=== PATIENT | female | born 1995 | race African-American/Black ===

== ENCOUNTER 2017-12-24 21:50 | Emergency (ER) | payer OTHER ==
[2017-12-24 23:04] LABS: KETONE, URINE AUTO RFX NEGATIVE (NEGATIVE); MUCUS, URINE RFX SMALL (NEGATIVE); NITRITE, URINE AUTO RFX NEGATIVE (NEGATIVE); RBC, URINE AUTO RFX 11 /HPF (0-3); SPECIFIC GRAVITY UR AUTO RFX 1.013 (1.002-1.035); SQUAM EPITHELIAL CELL UR AURFX 7 /HPF (0-6)
[2017-12-24 23:05] LABS: LEUKOCYTE ESTERASE UR AUTO RFX 3+ (NEGATIVE); WBC, URINE AUTO RFX 20 /HPF (0-3)
[2017-12-24] MEDS: NITROFURANTOIN (MACROBID) 100 MG CAP PO (23:20)
[2017-12-25 00:36] LABS: CHLAMYDIA DNA AMPLIFICATION NEGATIVE (NEGATIVE); GC DNA AMPLIFICATION NEGATIVE (NEGATIVE)
== END 2017-12-24 23:25 | disposition home or self-care (01) ==
LOC: M ED 21:50
DX: N39.0 Urinary tract infection, site not specified (principal); N89.8 Other specified noninflammatory disorders of vagina; F17.200 Nicotine dependence, unspecified, uncomplicated; Z79.2 Long term (current) use of antibiotics
CPT/HCPCS: 81001

== ENCOUNTER 2018-10-15 13:49 | Emergency (ER) | payer OTHER ==
[~2018-10-15] VITALS: Ht 149.9 cm; Wt 56.4 kg
[~2018-10-15 13:49] MED LIST: MACR100C43 PO; MICOCRE PV
[2018-10-15 15:56] LABS: BASO % 0.8 % (0.0-1.0); EOS # 0.1 10^3/uL (0.0-0.50); HEMOGLOBIN 14.6 g/dl (12.0-15.5); LYMPH # 2.2 10^3/uL (1.5-6.5); MEAN CORPUSCULAR HEMOGLOBIN 27.3 pg (27.0-33.0); MEAN CORPUSCULAR HGB CONC 31.7 g/dl (32.0-36.5); MONO # 0.4 10^3/uL (0.0-0.8); MONO % 8.5 % (0.0-5.0); NEUTROPHILS # 2.5 10^3/uL (1.8-7.7); NEUTROPHILS % 47.5 % (36.0-66.0); PLATELET COUNT, AUTOMATED 368 10^3/uL (150-450); RED BLOOD COUNT 5.35 10^6/uL (4.00-5.40); WHITE BLOOD COUNT 5.2 10^3/uL (4.0-10.0)
[2018-10-15 16:06] LABS: INR 1.03; PROTHROMBIN TIME 13.6 SECONDS (12.1-14.4)
[2018-10-15 16:32] VITALS: BP 130/80
== END 2018-10-15 17:00 | disposition home or self-care (01) ==
LOC: M ED 13:49
DX: R19.7 Diarrhea, unspecified (principal); K62.89 Other specified diseases of anus and rectum

== ENCOUNTER 2018-11-27 11:26 | Emergency (ER) | payer OTHER ==
[~2018-11-27] VITALS: Ht 149.9 cm; Wt 56.4 kg
[2018-11-27] MEDS ORDERED: HYDR-2809 PO (11:33)
[2018-11-27] MEDS ORDERED: IBUP-1022 PO (11:33)
[2018-11-27] MEDS ORDERED: CLOT2CRE PV (12:48)
[2018-11-27] MEDS ORDERED: FLAG500T PO (12:48)
[2018-11-27 13:09] VITALS: BP 107/70
[2018-11-27 14:01] LABS: CHLAMYDIA DNA AMPLIFICATION NEGATIVE (NEGATIVE); GC DNA AMPLIFICATION NEGATIVE (NEGATIVE)
== END 2018-11-27 13:40 | disposition home or self-care (01) ==
LOC: M ED 11:26
DX: N76.0 Acute vaginitis (principal); Z87.891 Personal history of nicotine dependence

== ENCOUNTER → 2019-07-14 | Outpatient (CLI) | payer OTHER ==
[~2019-07-14] MED LIST changes: +CLOT2CRE PV; +FLAG500T PO; +HYDR-2809 PO; +IBUP-1022 PO
== END ==
LOC: M LRY 11:38
DX: M76.821 Posterior tibial tendinitis, right leg (principal); M76.822 Posterior tibial tendinitis, left leg

== ENCOUNTER 2021-08-11 07:24 | Emergency (ER) | payer OTHER ==
[~2021-08-11] VITALS: Ht 152.4 cm; Wt 53.7 kg
[~2021-08-11 07:24] MED LIST changes: -HYDR-2809 PO; +HYDR-4431 PO
--- OUTSIDE RECORDS SUMMARY | 2021-08-11 07:32 | CCD ---
Author Author [facility] Organization [facility] Address Unknown Phone Unavailable Care Team Providers Care Alarm Operator Name Role Phone Josias Flowers MD Unavailable Unavailable Josias Flowers MD Unavailable Unavailable Josias Flowers MD Unavailable Unavailable Josias Flowers MD Unavailable Unavailable Josias Flowers MD Unavailable Unavailable Josias Flowers MD Unavailable Unavailable Josias Flowers MD Unavailable Unavailable Josias Flowers MD Unavailable Unavailable Josias Flowers MD Unavailable Unavailable Josias Flowers MD Unavailable Unavailable Josias Flowers MD Unavailable Unavailable Josias Flowers MD Unavailable Unavailable Josias Flowers MD Unavailable Unavailable Josias Flowers MD Unavailable Unavailable Josias Flowers MD Unavailable Unavailable Josias Flowers MD Unavailable Unavailable Josias Flowers MD Unavailable Unavailable Josias Flowers MD Unavailable Unavailable Josias Flowers MD Unavailable Unavailable Josias Flowers MD Unavailable Unavailable Josias Flowers MD Unavailable Unavailable Josias Flowers MD Unavailable Unavailable Josias Flowers MD Unavailable Unavailable Josias Flowers MD Unavailable Unavailable Josias Flowers MD Unavailable Unavailable Josias Flowers MD Unavailable Unavailable Josias Flowers MD Unavailable Unavailable Josias Flowers MD Unavailable Unavailable Josias Flowers MD Unavailable Unavailable Josias Flowers MD Unavailable Unavailable Josias Flowers MD Unavailable Unavailable Josias Flowers MD Unavailable Unavailable Josias Flowers MD Unavailable Unavailable Josias Flowers MD Unavailable Unavailable Josias Flowers MD Unavailable Unavailable Josias Flowers MD Unavailable Unavailable Josias Flowers MD Unavailable Unavailable Josias Flowers MD Unavailable Unavailable Josias Flowers MD Unavailable Unavailable Josias Flowers MD Unavailable Unavailable Josias Flowers MD Unavailable Unavailable Josias Flowers MD Unavailable Unavailable Josias Flowers MD Unavailable Unavailable Josias Flowers MD Unavailable Unavailable Josias Flowers MD Unavailable Unavailable Josias Flowers MD Unavailable Unavailable Josias Flowers MD Unavailable Unavailable Flowers, Josias Jolly MD Unavailable Unavailable Flowers, Josias Jolly MD Unavailable Unavailable Flowers, Josias Jolly MD Unavailable Unavailable Flowers, D Rik MD Unavailable Unavailable Flowers, D Rik MD Unavailable Unavailable Flowers, D Rik MD Unavailable Unavailable Flowers, D Rik MD Unavailable Unavailable Flowers, D Rik MD Unavailable Unavailable Flowers, D Rik MD Unavailable Unavailable Flowers, D Rik MD Unavailable Unavailable Flowers, D Rik MD Unavailable Unavailable Flowers, D Rik MD Unavailable Unavailable Flowers, D Rik MD Unavailable Unavailable Flowers, D Rik MD Unavailable Unavailable Flowers, D Rik MD Unavailable Unavailable Flowers, D Rik MD Unavailable Unavailable Flowers, D Rik MD Unavailable Unavailable Flowers, D Rik MD Unavailable Unavailable Flowers, D Rik MD Unavailable Unavailable Flowers, D Rik MD Unavailable Unavailable Flowers, D Rik MD Unavailable Unavailable Flowers, D Rik MD Unavailable Unavailable Flowers, D Rik MD Unavailable Unavailable Flowers, D Rik MD Unavailable Unavailable Flowers, D Rik MD Unavailable Unavailable Flowers, D Rik MD Unavailable Unavailable Flowers, D Rik MD Unavailable Unavailable Flowers, D Rik MD Unavailable Unavailable Flowers, D Rik MD Unavailable Unavailable Flowers, D Rik MD Unavailable Unavailable Flwoers, D Rik MD Unavailable Unavailable Flowers, Josias Jolly MD Unavailable Unavailable Flowers, D Rik MD Unavailable Unavailable Flowers, D Rik MD Unavailable Unavailable Flowers, Josias Jolly MD Unavailable Unavailable Flowers, Josias Jolly MD Unavailable Unavailable Flowers, Josias Jolly MD Unavailable Unavailable Flowers, Josias Jolly MD Unavailable Unavailable Flowers, D Rik MD Unavailable Unavailable Flowers, D Rik MD Unavailable Unavailable Flowers, D Rik MD Unavailable Unavailable Flowers, D Rik MD Unavailable Unavailable Flowers, D Rik MD Unavailable Unavailable Flowers, D Rik MD Unavailable Unavailable Flowers, D Rik MD Unavailable Unavailable Flowers, Josias Jolly MD Unavailable Unavailable Re-disclosure Warning The records that you are about to access may contain information from federally-assisted alcohol or drug abuse programs. If such information is present, then the following federally mandated warning applies: This information has been disclosed to you from records protected by federal confidentiality rules (42 CFR part 2). The federal rules prohibit you from making any further disclosure of this information unless further disclosure is expressly permitted by the written consent of the person to whom it pertains or as otherwise permitted by 42 CFR part 2. A general authorization for the release of medical or other information is NOT sufficient for this purpose. The Federal rules restrict any use of the information to criminally investigate or prosecute any alcohol or drug abuse patient.The records that you are about to access may contain highly sensitive health information, the redisclosure of which is protected by Article 27-F of the [facility] Public Health law. If you continue you may have access to information: Regarding HIV / AIDS; Provided by facilities licensed or operated by the [facility] Office of Mental Health; or Provided by the [facility] Office for People With Developmental Disabilities. If such information is present, then the following [facility] mandated warning applies: This information has been disclosed to you from confidential records which are protected by state law. State law prohibits you from making any further disclosure of this information without the specific written consent of the person to whom it pertains, or as otherwise permitted by law. Any unauthorized further disclosure in violation of state law may result in a fine or snf sentence or both. A general authorization for the release of medical or other information is NOT sufficient authorization for further disc losure. Allergies and Adverse Reactions Type Description Substance Reaction Status Data Source(s ) Allergy to substance Allergy to substance Allergy to substance [place] ([facility]) Family History Family Member Name Family Member Gender Family Member Status Date o f Status Description Data Source(s) Unknown Male Problem [facility]ENT ([facility] Encounters Encounter Providers Location Date Indications Data Source(s ) Rik Flowers MD: [address] [place] [phone], Ph. Attender: Rik Flowers MD [facility] Medical 05/05/2021 12:00:00 AM EDT [place] ([facility]) Medications No Information Insurance Providers Payer name Policy type / Coverage type Policy ID Covered constitution party ID Covered constitution party's relationship to balderas Policy Balderas Plan Information SELF PAY [facility] [id number] [facility] [id number] [facility] [address] Commercial [id number] [facility] ACTIVE DUTY [id number] [place] [address] Commercial [id number] Self [id number] [facility] [id number] S [id number] [facility] [id number] S [id number] Problems, Conditions, and Diagnoses No Information Surgeries/Procedures No Information Results ID Date Data Source [id number] 05/05/2021 04:12:00 PM EDT [place] ([facility]) Name Value Range Interpretation Code Description Data Pamela rce(s) Supporting Document(s) sars-cov-2 negative negative Sars-cov-2 [place] ([facility]) ID Date Data Source [id number] 05/05/2021 04:03:00 PM EDT [facility] Name Value Range Interpretation Code Description Data Pamela rce(s) Supporting Document(s) SARS coronavirus 2 RdRp gene [Presence] in Respiratory specimen by AMALIA with probe detection Not detected [facility] This lab was ordered by [facility] and reported by [facility]. Procedure Social History No Information
--- OUTSIDE RECORDS SUMMARY | 2021-08-11 07:32 | CCD ---
Author Organization Unknown Address [address] [place] [address] Phone [phone] Care Team Providers Care News Commentator Name Role Phone [phone] Covid Nurse Unavailable Unavailable Allergies None recorded. Medications None recorded. Problems None recorded. Procedures None recorded. Results Lab Results Date Name Specimen Result Interpretation Description Value Range Status Address 05/05/2021 SARS CoV 2 RdRp Gene, QL Probe, Respiratory Spec imen Nasopharyngeal Normal Sars-cov-2 negative negative Final [facility]: [address] [place] [address] Past Encounters 05/05/2021 Exposure to SARS-CoV-2 Rik Flowers MD: [address] [place] [phone], Ph. Social History None recorded. Vaccine List None recorded. Plan of Care Reminders Provider Appointments None recorded. Lab None recorded. Referral None recorded. Procedures None recorded. Surgeries None recorded. Imaging None recorded. Vitals None recorded.
--- OUTSIDE RECORDS SUMMARY | 2021-08-11 08:47 | CCD ---
Author Author [facility] Organization [facility] Address Unknown Phone Unavailable Care Team Providers Care Veterinarian Helper Name Role Phone Josias Flowers MD Unavailable Unavailable Josias Flowers MD Unavailable Unavailable Josias Flowers MD Unavailable Unavailable Josias Flowers MD Unavailable Unavailable Josias Flowers MD Unavailable Unavailable Josias Flowers MD Unavailable Unavailable Josias Flowers MD Unavailable Unavailable Josias Flowers MD Unavailable Unavailable Josias Flowers MD Unavailable Unavailable Josias Flowers MD Unavailable Unavailable Josias Flowers MD Unavailable Unavailable Josisa Flowers MD Unavailable Unavailable Josias Flowers MD [...] is protected by Article 27-F of the [facility] Public Health law. If you continue you may have access to information: Regarding HIV / AIDS; Provided by facilities licensed or operated by the [facility] Office of Mental Health; or Provided by the [facility] Office for People With Developmental Disabilities. If such information is present, then the following [facility] mandated warning applies: This information has been [...] law may result in a fine or nursing home sentence or both. A general authorization for the release of medical or other information is NOT sufficient authorization for further disc losure. Allergies and Adverse Reactions Type Description Substance Reaction Status Data Source(s ) Allergy to substance Allergy to substance Allergy to substance [place] ([facility]) Family History Family Member Name Family Member Gender Family Member Status Date o f Status Description Data Source(s) Unknown Male Problem [facility] ([facility] Encounters Encounter Providers Location Date Indications Data Source(s ) Rik Flowers MD: [address] [place] [phone], Ph. Attender: Rik Flowers MD [facility] Medical 05/05/2021 12:00:00 AM EDT [place] ([facility]) Medications No Information Insurance Providers Payer name Policy type / Coverage type Policy ID Covered alliance party ID Covered alliance party's relationship to balderas Policy [place] Plan Information SELF PAY [facility] [id number] [facility] [id number] [facility] 2017 Commercial [id number] Self [id number] [facility] ACTIVE DUTY [id number] [place] [id number] Commercial [id number] Self [id number] [facility] [id number] S [id number] [facility] [id number] S [id number] Problems, Conditions, and Diagnoses No Information Surgeries/Procedures No Information Results ID Date Data Source [id number] 05/05/2021 04:12:00 PM EDT [place] ([facility]) Name Value Range Interpretation Code Description Data Pamela rce(s) Supporting Document(s) sars-cov-2 negative negative Sars-cov-2 [place] ([facility]) ID Date Data Source [id number] 05/05/2021 04:03:00 PM EDT [facility] Name Value Range Interpretation Code Description Data Pamela rce(s) Supporting Document(s) SARS coronavirus 2 RdRp gene [Presence] in Respiratory specimen by AMALIA with probe detection Not detected [facility] This lab was ordered by [facility] and reported by [facility]. Procedure Social History No Information
[2021-08-11] MEDS ORDERED: NS 1,000 ML IV ONE (09:15)
[2021-08-11] MEDS ORDERED: ACETAMINOPHEN 500 MG TAB PO ONE (09:15)
[2021-08-11 09:50] LABS: BASO # 0.1 10^3/uL (0.0-0.2); BASO % 1.2 % (0.0-1.0); EOS # 0.1 10^3/uL (0.0-0.5); EOS % 1.9 % (0.0-3.0); HEMATOCRIT 45.5 % (36.0-47.0); HEMOGLOBIN 14.7 g/dl (12.0-15.5); LYMPH # 2.5 10^3/uL (1.5-5.0); LYMPH % 59.3 % (24.0-44.0); MEAN CORPUSCULAR HEMOGLOBIN 28.7 pg (27.0-33.0); MEAN CORPUSCULAR HGB CONC 32.3 g/dl (32.0-36.5); MEAN CORPUSCULAR VOLUME 88.9 fl (80.0-96.0); MONO # 0.4 10^3/uL (0.0-0.8); MONO % 9.5 % (2.0-8.0); NEUTROPHILS # 1.2 10^3/uL (1.5-8.5); NEUTROPHILS % 27.9 % (36.0-66.0); PLATELET COUNT, AUTOMATED 439 10^3/uL (150-450); RED BLOOD COUNT 5.12 10^6/uL (4.00-5.40); WHITE BLOOD COUNT 4.2 10^3/uL (4.0-10.0)
[2021-08-11 10:07] LABS: HCG, SERUM QUALITATIVE NEGATIVE (NEGATIVE)
[2021-08-11 10:09] LABS: ALBUMIN 3.8 GM/DL (3.2-5.2); ALT/SGPT 23 U/L (12-78); BILIRUBIN,TOTAL 0.6 MG/DL (0.2-1.0); BLOOD UREA NITROGEN 4 MG/DL (7-18); CARBON DIOXIDE LEVEL 22 MEQ/L (21-32); CHLORIDE LEVEL 103 MEQ/L (98-107); CK-MB VALUE MASS < 1.0 NG/ML (<3.6); CPK CREATINE PHOSPHOKINASE 101 U/L (26-192); CREATININE FOR GFR 0.82 MG/DL (0.55-1.30); GLOMERULAR FILTRATION RATE > 60.0 (>60); GLUCOSE, FASTING 96 MG/DL (70-100); LDH LACTATE DEHYDROGENASE 164 U/L (84-246); MAGNESIUM LEVEL 2.2 MG/DL (1.8-2.4); MB/CK RELATIVE INDEX 0.99 (< OR =4); POTASSIUM SERUM 4.2 MEQ/L (3.5-5.1); SODIUM LEVEL 137 MEQ/L (136-145); TOTAL PROTEIN 8.5 GM/DL (6.4-8.2); TROPONIN I < 0.02 NG/ML (< 0.10)
[2021-08-11 10:24] LABS: RSV AMPLIFICATION NEGATIVE (NEGATIVE)
[2021-08-11 11:25] VITALS: BP 137/85
[2021-08-11 12:07] VITALS: O2SAT 100
[2021-08-11] MEDS ORDERED: ISOVUE-370 76% 100ML VIAL As Ordered ONE (12:16)
--- NOTE | 2021-08-11 12:32 | REP ---
INDICATION: r/o PE, tachy with exertion, chest pain COMPARISON: None. TECHNIQUE: CT angiography of the chest after the intravenous administration of 75 cc Isovue 370 attention pulmonary arteries. FINDINGS: There is excellent visualization of the pulmonary arterial vasculature. No focal filling defects are present that would be considered consistent with acute pulmonary emboli. There is no mediastinal or hilar adenopathy. There are no pleural or pericardial effusions. The imaged upper abdomen and imaged osseous structures are within normal limits. Evaluation of the lung mock shows no abnormal nodules, masses, or opacities. IMPRESSION: CT findings are within normal limits. <Electronically signed by Jhon Castellano > 08/11/21 [id number]
[2021-08-11 13:14] LABS: MONO REFLEX EBV COMP NEGATIVE (NEGATIVE)
--- NOTE | 2021-08-11 18:27 | ECGEPIP ---
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
[2021-08-14 17:07] LABS: EBV VIRAL CAPSID AG IgM <36.0 U/mL (0.0-35.9); Lyme Disease IgG/IgM Antibodie <0.91 ISR (0.00-0.90); Lyme Disease IgM Ab Quantitati <0.80 index (0.00-0.79)
== END 2021-08-11 13:07 | disposition home or self-care (01) ==
LOC: M ED 07:24
DX: J06.9 Acute upper respiratory infection, unspecified (principal); B34.9 Viral infection, unspecified; F17.290 Nicotine dependence, other tobacco product, uncomplicated
CPT/HCPCS: 71275; 80053; 81001; 82550; 82553; 83615; 83735; 84484; 84703; 85025; 86308; 86617; 86664; 86665; 87086; 87631; 93005; 93041; 99284; Q9967